=== PATIENT | male | born 1955 | race Caucasian/White ===

== ENCOUNTER → 2016-04-12 | Outpatient (CLI) | payer OTHER ==
--- NOTE | 2016-04-12 17:48 | DX ---
PA and lateral chest. . Clinical History: Persistent cough. Comparison Study: None available. Findings: The lungs are clear. No pleural disease identified. Heart size is normal. A single screw is present in the left coracoid process... Impression: Stable negative chest.
== END ==
LOC: FIMAGING 14:36
PROVIDERS: ATTEND Nurse Practitioner Family
DX: R05 Cough (principal); K21.9 Gastro-esophageal reflux disease without esophagitis

== ENCOUNTER → 2018-07-06 | Outpatient (CLI) | payer OTHER | LOC: FIMAGING 17:33 → EDSTATUS 17:34 | PROVIDERS: ATTEND Physician Assistant | DX: J45.909 Unspecified asthma, uncomplicated (principal) ==